=== PATIENT | female | born 1935 | race Caucasian/White ===

== ENCOUNTER 2016-08-03 19:40 | Emergency (ER) | payer MEDICARE, BC ==
[2013-08-16 18:31] VITALS: BMI 25.6
[~2016-08-03 19:40] MED LIST: ATENOLOL25 MG PO; ATIVAN2 MG PO; CIPRO500 MG PO; DOCUSATE S50 MG/5 ML PO; FERROUS SULFAT325 MG PO; LORTAB LIQUID15 ML PO; PROZAC40 MG PO; RESTORIL15 MG PO; XARELTO20 MG PO
== END 2016-08-03 20:15 | disposition home or self-care (01) ==
LOC: D.ER 19:40
DX: H83.8X2 Other specified diseases of left inner ear (principal); G30.9 Alzheimer's disease, unspecified; F02.80 Dementia in other diseases classified elsewhere, unspecified severity, without behavioral disturbance, psychotic disturbance, mood disturbance, and anxiety; Z86.718 Personal history of other venous thrombosis and embolism

== ENCOUNTER 2017-07-20 20:03 | Emergency (ER) | payer MEDICARE, BC ==
[2013-08-16 18:31] VITALS: BMI 25.6
== END 2017-07-20 22:18 | disposition home or self-care (01) ==
LOC: D.ER 20:03
DX: S42.291A Other displaced fracture of upper end of right humerus, initial encounter for closed fracture (principal); W19.XXXA Unspecified fall, initial encounter; Y93.89 Activity, other specified; Y92.019 Unspecified place in single-family (private) house as the place of occurrence of the external cause; G30.9 Alzheimer's disease, unspecified; F02.80 Dementia in other diseases classified elsewhere, unspecified severity, without behavioral disturbance, psychotic disturbance, mood disturbance, and anxiety

== ENCOUNTER → 2018-04-14 13:13 | Outpatient (CLI) | payer MEDICARE, BC ==
[2013-08-16 18:31] VITALS: BMI 25.6
== END | disposition home or self-care (01) ==
LOC: D.RAD 13:13
DX: M79.672 Pain in left foot (principal)

== ENCOUNTER 2018-06-14 12:12 | Emergency (ER) | payer MEDICARE, BC ==
[~2018-06-14] VITALS: Ht 157.5 cm; Wt 59.1 kg
[2018-06-14 12:17] VITALS: Ht 157.5 cm; Wt 59.1 kg
[2018-06-14] MEDS ORDERED: XANAX1 MG PO (12:19)
[2018-06-14] MEDS ORDERED: MACROBID100 MG PO (12:20)
[2018-06-14 12:54] LABS: HEMATOCRIT 39.4 % (36.0-48.0); HEMOGLOBIN 12.6 g/dL (12-16); MCH 28.7 pg (26.0-34.0); MCV 89.7 fL (80.0-100.0); MEAN PLATELET VOLUME 10.8 fL (7.4-10.4); NEUTROPHILS 72.7 % (40-80); PLATELET COUNT 150 10x3/uL (130-400); RBC 4.39 10x6/uL (4.00-5.40); WBC 6.4 10x3/uL (4.8-10.8)
[2018-06-14 13:50] VITALS: BP 110/64
== END 2018-06-14 14:20 | disposition home or self-care (01) ==
LOC: D.ER 12:12
PROVIDERS: Family Medicine
DX: S90.32XA Contusion of left foot, initial encounter (principal)